=== PATIENT | male | born 1945 | race Caucasian/White ===

== ENCOUNTER 2016-06-29 13:19 | Outpatient (RCR) | payer MEDICARE, OTHER ==
[~2016-06-29 13:19] MED LIST: ASPI-892 PO; AZIT-21 PO; DESL5TAB5 PO; FENO135C PO; HYDR-229 PO; HYDR1CAP2 PO; LISI20TA2 PO; NAPR-243 PO; NF-URO10 PO; NITR-33 PO; OMEP10CA2 PO; ROSU10TA12 PO
== END 2016-07-28 10:09 | disposition home or self-care (01) ==
PROVIDERS: ATTEND Internal Medicine Rheumatology
DX: M75.101 Unspecified rotator cuff tear or rupture of right shoulder, not specified as traumatic (principal); M75.102 Unspecified rotator cuff tear or rupture of left shoulder, not specified as traumatic

== ENCOUNTER 2018-03-13 10:09 | Day surgery (SDC) | payer MEDICARE ==
[~2018-03-13] VITALS: Ht 177.8 cm; Wt 82.2 kg
[~2018-03-13 10:09] MED LIST changes: +ACID1TAB PO; +AMLO5TAB9 PO; +AMOX1TAB12 PO; +ASPI-983 PO; +C250T PO; +CETI10TA20 PO; +DESL5TAB PO; +FENO135C4 PO; +FLUT9.9S NS; +FOLI0.4T2 PO; +GELA650C4 PO; +HYDR-3812 PO; +HYDR200T46 PO; +LISI-552 PO; +METH2.5T PO; +NAPR-915 PO; +NFBIOT1000 PO; +OMEP20TA7 PO; +POTA15TA9 PO; +ROSU10TA27 PO; +ROSU5TAB12 PO; +SODI14.12 NS; +VITA-189 PO; +VITA400T9 PO
[2018-03-13 10:15] VITALS: BP 144/91
[2018-03-13] MEDS ORDERED: MIDAZOLAM 2 MG/2 ML (VERSED) VIAL IVP ONE (10:30)
[2018-03-13] MEDS ORDERED: LIDOCAINE JELLY 2% 6 ML SYRINGE MM PRN (10:30)
[2018-03-13] MEDS ORDERED: fentaNYL INJECTION 100 MCG/2 ML AMP IVP ONE (10:30)
--- NOTE | 2018-03-13 10:31 | Conscious Sedation/ASA ---
Conscious Sedation Pre-Proced Time 10:30 ASA Score 2 For ASA 3 and 4: Consider anesthesia and medical clearance. Also, for patients with a history of failed moderate sedation consider anesthesia. Airway Lungs Heart ASA score ASA 1: a normal healthy patient ASA 2: a patient with a mild systemic disease (mid diabetes, controlled hypertension, obesity ASA 3: a patient with a severe systemic disease that limits activity (angina , COPD, prior Myocardial infarction) ASA 4: a patient with an incapacitating disease that is a constant threat to life (CHF, renal failure) ASA 5: a moribund patient not expected to survive 24 hrs. (ruptured aneurysm) ASA 6: a declared brain patient whose organs are being harvested. For emergent operations, add the letter E after the classification Mallampati Classification Grade 2 Sedation Plan Analgesia, Amnesia, Plan communicated to team members, Discussed options with patient/fam, Discussed risks with patient/fam The patient is an appropriate candidate to undergo the planned procedure, sedation, and anesthesia. The patient immediately re-assessed prior to indication. XIOMARA FOX MD Mar 13, 2018 10:30
--- NOTE | 2018-03-13 10:33 | Progress Note-Pre Operative ---
Pre-Operative Progress Note H&P Reviewed The H&P was reviewed, patient examined and no changes noted. Date Seen by Provider: Mar 13, 2018 Time Seen by Provider: 10:30 Date H&P Reviewed: Mar 13, 2018 Time H&P Reviewed: 10:30 Pre-Operative Diagnosis: occult positive stool, family hx colon cancer XIOMARA FOX MD Mar 13, 2018 10:33
[2018-03-13] MEDS ORDERED: NS IV 500 ML 500 ML ONE (10:40)
[2018-03-13] MEDS ORDERED: ACETAMINOPHEN 325 MG TABLET PO PRN (10:45)
[2018-03-13] MEDS ORDERED: HYDROcodone/APAP 5 MG/325 MG (LORTAB) TAB PO PRN (10:45)
[2018-03-13] MEDS ORDERED: morphine INJ 10 MG/ML 1ML (SYR OR VIAL) IV PRN (10:45)
[2018-03-13] MEDS ORDERED: ONDANSETRON 4 MG/2 ML (SDV) Z0FRAN IV PRN (10:45)
--- NOTE | 2018-03-13 11:13 | Discharge Inst-Surgical ---
D/C Lap Instructions-RUDDY Follow Up 5 years Activity as tolerated Regular Diet Symptoms to Report: Fever over 101 degree F, Nausea/Vomiting Infection Signs and Symptoms to report: Increased redness, Foul odor of wound, Increased drainage Bathing instructions: May shower Operative Area Clean/Dry; Keep incision clean/dry If any problems/questions: Contact your physician or go to Emergency Room XIOMARA FOX MD Mar 13, 2018 11:13
[2018-03-13] MEDS ORDERED: MIDAZOLAM 2 MG/2 ML (VERSED) VIAL ONE ×6 (12:13→13:12)
[2018-03-13] MEDS ORDERED: LIDOCAINE JELLY 2% 6 ML SYRINGE ONE (12:13)
[2018-03-13] MEDS ORDERED: fentaNYL INJECTION 100 MCG/2 ML AMP ONE ×2 (12:13→13:17)
[2018-03-13] MEDS ORDERED: NS IV 500 ML 500 ML IV SCH (13:15)
[2018-03-13] MEDS ORDERED: proPOfol 200 MG/20 ML (DIPRIVAN) VIAL IV ONE (13:28)
--- NOTE | 2018-03-13 14:12 | Progress Note-Post Operative ---
Post-Operative Progess Note Surgeon (s)/Manual Tester (s) Surgeon XIOMARA FOX MD Manual Tester: none Pre-Operative Diagnosis occult positive stool, family hx colon cancer Post-Operative Diagnosis mild chronic stage 2 ext and int hemorrhoids, mod-severe sigmoid diverticulosis. Procedure & Operative Findings Date of Procedure 03/13/18 Procedure Performed/Findings Colonoscopy Anesthesia Type MAC Estimated Blood Loss Estimated blood loss (mL): minimal Specimens/Packing Specimens Removed none XIOMARA FOX MD Mar 13, 2018 14:11
[2018-03-13 14:15] VITALS: BP 113/75
[2018-03-13 14:45] VITALS: BP 126/80
[2018-03-13 15:00] VITALS: BP 126/80
--- NOTE | 2018-03-13 15:05 | OPERATIVE REPORT ---
DATE OF SERVICE: 03/13/2018 ATTENDING PHYSICIAN: Dr. Moore. PREOPERATIVE DIAGNOSES: Occult positive stool based on Cologuard test, family history of colon cancer. POSTOPERATIVE DIAGNOSES: Mild chronic stage II external and internal hemorrhoids, [id number] sigmoid diverticulosis, no polyps or any neoplasms identified. PROCEDURE: Colonoscopy. SURGEON: Xiomara Fox MD ANESTHESIA: Monitored anesthesia care. ESTIMATED BLOOD LOSS: Minimal. FINDINGS: Chronic stage II external and internal hemorrhoids, not actively edematous nor inflamed and no bleeding. Normal sphincter tone was felt and there was a surgically absent prostate. There was a moderate to severe sigmoid diverticulosis with a tortuous sigmoid colon as well. There was no active bleeding as well as no mucosal inflammatory change to indicate any active diverticulitis. The remainder of the colon was normal. There were no polyps or any neoplasms identified. DISPOSITION: The patient tolerated the procedure well. INDICATIONS: The patient is a 72-year-old male in need of a followup colonoscopy. He reports his last colonoscopy was approximately 2009. He states on that colonoscopy was found to have a moderate sigmoid diverticulosis. He did take a Cologuard test, which was positive. He does not report any major issues with diarrhea nor constipation as well as no red blood per rectum nor any dark tarry stools. He does have a family history of colon cancer with his father having the disease. DESCRIPTION OF PROCEDURE: The patient was brought to the endoscopy suite, laid in the left lateral decubitus position. After adequate IV pain and sedative medications and monitored anesthesia care, digital rectal examination was performed. Mild chronic stage II external and internal hemorrhoids were identified, which were not actively edematous nor inflamed and no bleeding. Normal sphincter tone was felt and there were no palpable masses. Prostate gland was a surgically absent. The endoscope was then intubated to the anus and rectum gently insufflated. The endoscope was then advanced to the valves of George of the rectum with no polyps or any neoplasms identified. We then proceeded to the sigmoid colon where there was a tortuous sigmoid colon identified. There was also moderate to severe sigmoid diverticulosis. There were no mucosal inflammatory changes to indicate any active diverticulitis as well as no active bleeding. We were able to advance scope through the sigmoid colon into the descending colon where there were no polyps or any neoplasms identified. The endoscope was then advanced to the remainder of the transverse, ascending colon to the cecum and these segments were normal. There were no polyps or any neoplasms identified. The endoscope was then slowly withdrawn while taking a second look and suctioning of residual air with no additional findings. The patient tolerated the procedure well. We will recommend a high fiber diet with at least 30 grams of fiber per day as well as significant amounts of water on a daily basis to promote soft stools on a daily basis. Because of his first degree family history of colon cancer, we will recommend a followup colonoscopy in 5 years. Job ID: [id number] DocumentID: [id number] Dictated Date: 03/13/2018 14:16:37 [facility] Date: 03/13/2018 15:05:06 Dictated By: XIOMARA FOX MD
--- OUTSIDE RECORDS SUMMARY | 2018-03-13 15:10 | XMS REPORT | Clinical Summary ---
Author Author [facility] Organization [facility] Address Unknown Phone Unavailable Care Team Providers Care Foster Winder Name Role Phone PCP Unavailable Allergies Not on File Current Medications Not on file Active Problems Not on file Social History Tobacco Use Types Packs/Day Years Used Date Never Assessed Sex Assigned at Date Recorded Not on file Last Filed Vital Signs Not on file Plan of Treatment Not on file Results Not on filefrom Last 3 Months
--- OUTSIDE RECORDS SUMMARY | 2018-03-13 15:10 | XMS REPORT | Continuity of Care Document ---
Author Author [facility] Address Unknown Phone Unavailable Allergies Active Description Code Type Severity Reaction Onset Reported/Identified Relationship to Patient Clinical Status Yes No Known Drug Allergies [id number] Drug Allergy Unknown N/A 03/11/2010 Yes ciprofloxacin [id number] Drug Allergy Moderate N/A 05/24/2017 Medications There is no data. Problems Date Dx Coded Attending Type Code Diagnosis Diagnosed By 07/12/2010 Ot 592.0 CALCULUS OF KIDNEY 07/07/2013 JAYLEN ACE DO V05.9 NEED FOR PROPHYLACTIC VACCINATION AND INOCULATION AGAINST UNSPECIFIED SINGLE DISEASE 07/07/2013 JAYLEN ACE DO V06.1 TDAP DX 10/26/2015 Ot 592.0 CALCULUS OF KIDNEY 10/26/2015 Ot V72.84 EXAM PRE- OPERATIVE NOS 10/26/2015 Ot 455.0 INT HEMORRHOID W/O COMPL 10/26/2015 Ot 562.10 DIVERTICULOSIS COLON (W/O MENT OF HEMORR 10/26/2015 Ot V16.0 FAMILY HX-GI MALIGNANCY 10/26/2015 Ot V76.51 SCREEN MAL NEOP-COLON 11/02/2015 NORRIS BALTAZAR, PETROS Calzada Ot J32.9 CHRONIC SINUSITIS, UNSPECIFIED 11/18/2015 NORRIS BALTAZAR, PETROS Calzada Ot J32.9 CHRONIC SINUSITIS, UNSPECIFIED 06/02/2016 FACUNDO BALTAZAR, REAL Martinez Ot M75.101 UNSP ROTATR-CUFF TEAR/RUPTR OF RIGHT JOANIE 06/02/2016 REAL LOREDO MD Ot M75.102 UNSP ROTATR-CUFF TEAR/RUPTR OF LEFT SHOU 07/14/2016 REAL LOREDO MD Ot M75.101 UNSP ROTATR-CUFF TEAR/RUPTR OF RIGHT JOANIE 07/14/2016 REAL LOREDO MD Ot M75.102 UNSP ROTATR-CUFF TEAR/RUPTR OF LEFT SHOU 07/28/2016 REAL LOREDO MD Ot M75.101 UNSP ROTATR-CUFF TEAR/RUPTR OF RIGHT JOANIE 07/28/2016 FACUNDO BALTAZAR, REAL Martinez Ot M75.102 UNSP ROTATR-CUFF TEAR/RUPTR OF LEFT SHOU 05/24/2017 NORRIS BALTAZAR, PETROS Calzada Ot J32.9 CHRONIC SINUSITIS, UNSPECIFIED 05/24/2017 TAI BELL MD Ot A41.9 SEPSIS, UNSPECIFIED ORGANISM 05/24/2017 TAI BELL MD Ot I10 ESSENTIAL (PRIMARY) HYPERTENSION 05/24/2017 TAI BELL MD Ot L03.114 CELLULITIS OF LEFT UPPER LIMB 05/24/2017 TAI BELL MD Ot W29.8XXA CNTCT WITH OTHER POWERED HAND TOOLS AND 05/24/2017 PETROS PISANO MD Ot J32.9 CHRONIC SINUSITIS, UNSPECIFIED 05/24/2017 TAI BELL MD Ot A41.9 SEPSIS, UNSPECIFIED ORGANISM 05/24/2017 TAI BELL MD Ot I10 ESSENTIAL (PRIMARY) HYPERTENSION 05/24/2017 TAI BELL MD Ot L03.114 CELLULITIS OF LEFT UPPER LIMB 05/24/2017 TAI BELL MD Ot W29.8XXA CNTCT WITH OTHER POWERED HAND TOOLS AND 05/24/2017 TAI BELL MD Ot A41.9 SEPSIS, UNSPECIFIED ORGANISM 05/24/2017 TAI BELL MD Ot I10 ESSENTIAL (PRIMARY) HYPERTENSION 05/24/2017 TAI BELL MD Ot L03.114 CELLULITIS OF LEFT UPPER LIMB 05/24/2017 TAI BELL MD Ot W29.8XXA CNTCT WITH OTHER POWERED HAND TOOLS AND 05/25/2017 TAI BELL MD Ot A41.9 SEPSIS, UNSPECIFIED ORGANISM 05/25/2017 TAI BELL MD Ot I10 ESSENTIAL (PRIMARY) HYPERTENSION 05/25/2017 TAI BELL MD Ot L03.114 CELLULITIS OF LEFT UPPER LIMB 05/25/2017 TAI BELL MD Ot W29.8XXA CNTCT WITH OTHER POWERED HAND TOOLS AND 05/25/2017 TAI BELL MD Ot Z90.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( 05/25/2017 TAI BELL MD Ot A41.9 SEPSIS, UNSPECIFIED ORGANISM 05/25/2017 TAI BELL MD Ot I10 ESSENTIAL (PRIMARY) HYPERTENSION 05/25/2017 TAI BELL MD Ot L03.114 CELLULITIS OF LEFT UPPER LIMB 05/25/2017 TAI BELL MD, Ot W29.8XXA CNTCT WITH OTHER POWERED HAND TOOLS AND 05/25/2017 TAI BELL MD Ot Z90.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( 05/25/2017 TAI BELL MD Ot A41.9 SEPSIS, UNSPECIFIED ORGANISM 05/25/2017 TAI BELL MD Ot I10 ESSENTIAL (PRIMARY) HYPERTENSION 05/25/2017 TAI BELL MD Ot L03.114 CELLULITIS OF LEFT UPPER LIMB 05/25/2017 TAI BELL MD Ot W29.8XXA CNTCT WITH OTHER POWERED HAND TOOLS AND 05/25/2017 TAI BELL MD Ot Z90.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( 05/25/2017 TAI BELL MD Ot A41.9 SEPSIS, UNSPECIFIED ORGANISM 05/25/2017 TAI BELL MD Ot I10 ESSENTIAL (PRIMARY) HYPERTENSION 05/25/2017 TAI BELL MD Ot L03.114 CELLULITIS OF LEFT UPPER LIMB 05/25/2017 TAI BELL MD Ot W29.8XXA CNTCT WITH OTHER POWERED HAND TOOLS AND 05/25/2017 TAI BELL MD Ot Z90.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( 05/28/2017 TAI BELL MD Ot A41.9 SEPSIS, UNSPECIFIED ORGANISM 05/28/2017 TAI BELL MD Ot E87.6 HYPOKALEMIA 05/28/2017 TAI BELL MD Ot I10 ESSENTIAL (PRIMARY) HYPERTENSION 05/28/2017 TAI BELL MD Ot L03.114 CELLULITIS OF LEFT UPPER LIMB 05/28/2017 TAI BELL MD Ot N17.9 ACUTE KIDNEY FAILURE, UNSPECIFIED 05/28/2017 TAI BELL MD Ot W29.8XXA CNTCT WITH OTHER POWERED HAND TOOLS AND 05/28/2017 RAY BALTAZAR, TAI Francis Ot Z90.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( 06/08/2017 NORRIS BALTAZAR, PETROS Calzada Ot J32.9 CHRONIC SINUSITIS, UNSPECIFIED Procedures Code Description Performed By Performed On [id number] EXCISION OF L HAND SUBCU/ FASCIA, OPEN AP 05/25/2017 [id number] EXCISION OF L HAND SUBCU/ FASCIA, OPEN AP 05/25/2017 Results Test Result Range Bacterial blood culture - 05/24/17 09:08 Bacterial blood culture NG NRG Complete blood count (CBC) with automated white blood cell (WBC) differential - 05/24/17 09:15 Blood leukocytes automated count (number/volume) 20.4 10*3/uL 4.3-11.0 Blood erythrocytes automated count (number/volume) 4.18 10*6/uL 4.35-5.85 Venous blood hemoglobin measurement (mass/volume) 13.6 g/dL 13.3-17.7 Blood hematocrit (volume fraction) 40 % 40-54 Automated erythrocyte mean corpuscular volume 95 [foz_us] 80-99 Automated erythrocyte mean corpuscular hemoglobin (mass per erythrocyte) 33 pg 25-34 Automated erythrocyte mean corpuscular hemoglobin concentration measurement ( mass/volume) 34 g/dL 32-36 Automated erythrocyte distribution width ratio 12.6 % 10.0-14.5 Automated blood platelet count (count/volume) 169 10*3/uL 130-400 Automated blood platelet mean volume measurement 10.6 [foz_us] 7.4-10.4 Automated blood neutrophils/100 leukocytes 88 % 42-75 Automated blood lymphocytes/100 leukocytes 5 % 12-44 Blood monocytes/100 leukocytes 7 % 0-12 Automated blood eosinophils/100 leukocytes 0 % 0-10 Automated blood basophils/100 leukocytes 0 % 0-10 Blood neutrophils automated count (number/volume) 17.9 10*3 1.8-7.8 Blood lymphocytes automated count (number/volume) 1.0 10*3 1.0-4.0 Blood monocytes automated count (number/volume) 1.5 10*3 0.0-1.0 Automated eosinophil count 0.1 10*3/uL 0.0-0.3 Automated blood basophil count (count/volume) 0.0 10*3/uL 0.0-0.1 Blood manual differential performed detection - 05/24/17 09:15 Blood monocytes/100 leukocytes 2 % NRG Manual blood segmented neutrophils/100 leukocytes 89 % NRG Blood band neutrophils/100 leukocytes 3 % NRG Manual blood lymphocytes/100 leukocytes 5 % NRG Manual eosinophils/100 leukocytes in nose 1 % NRG Blood erythrocyte morphology finding identification NORMAL NR Blood lactic acid measurement (moles/volume) - 05/24/17 09:23 Blood lactic acid measurement (moles/volume) 1.32 mmol/L 0.50-2.00 PT panel in platelet poor plasma by coagulation assay - 05/24/17 09:23 Prothrombin time (PT) in platelet poor plasma by coagulation assay 16.3 s 12.2-14.7 INR in platelet poor plasma or blood by coagulation assay 1.3 0.8-1.4 Activated partial thromboplastin time (aPTT) in platelet poor plasma bycoagulation assay - 05/24/17 09:23 Activated partial thromboplastin time (aPTT) in platelet poor plasma bycoagulation assay 37 s 24-35 Comprehensive metabolic panel - 05/24/17 09:23 Serum or plasma sodium measurement (moles/volume) 136 mmol/L 135-145 Serum or plasma potassium measurement (moles/volume) 3.6 mmol/L 3.6-5.0 Serum or plasma chloride measurement (moles/volume) 105 mmol/L 98-107 Carbon dioxide 21 mmol/L 21-32 Serum or plasma anion gap determination (moles/volume) 10 mmol/L 5-14 Serum or plasma urea nitrogen measurement (mass/volume) 25 mg/dL 7-18 Serum or plasma creatinine measurement (mass/volume) 1.63 mg/dL 0.60-1.30 Serum or plasma urea nitrogen/creatinine mass ratio 15 NRG Serum or plasma creatinine measurement with calculation of estimated glomerular filtration rate 42 NRG Serum or plasma glucose measurement (mass/volume) 132 mg/dL 70-105 Serum or plasma calcium measurement (mass/volume) 9.5 mg/dL 8.5-10.1 Serum or plasma total bilirubin measurement (mass/volume) 0.8 mg/dL 0.1-1.0 Serum or plasma alkaline phosphatase measurement (enzymatic activity/volume) 58 U/L 40-136 Serum or plasma aspartate aminotransferase measurement (enzymatic activity/ volume) 16 U/L 5-34 Serum or plasma alanine aminotransferase measurement (enzymatic activity/volume ) 19 U/L 0-55 Serum or plasma protein measurement (mass/volume) 6.7 g/dL 6.4-8.2 Serum or plasma albumin measurement (mass/volume) 4.0 g/dL 3.2-4.5 Bacterial blood culture - 05/24/17 09:23 Bacterial blood culture NG NRG Complete urinalysis with reflex to culture - 05/24/17 09:50 Urine color determination RADHA NRG Urine clarity determination CLEAR NRG Urine pH measurement by test strip 5 5-9 Specific gravity of urine by test strip 1.025 1.016- 1.022 Urine protein assay by test strip, semi-quantitative 1+ NEGATIVE Urine glucose detection by automated test strip NEGATIVE NEGATIVE Erythrocytes detection in urine sediment by light microscopy NEGATIVE NEGATIVE Urine ketones detection by automated test strip 1+ NEGATIVE Urine nitrite detection by test strip NEGATIVE NEGATIVE Urine total bilirubin detection by test strip 1+ NEGATIVE Urine urobilinogen measurement by automated test strip (mass/volume) 1 mg/dL NORMAL Urine leukocyte esterase detection by dipstick 1+ NEGATIVE Automated urine sediment erythrocyte count by microscopy (number/high power field) [HPF] NRG Automated urine sediment leukocyte count by microscopy (number/high power field ) [HPF] NRG Bacteria detection in urine sediment by light microscopy FEW NRG Crystals detection in urine sediment by light microscopy NONE NRG Casts detection in urine sediment by light microscopy PRESENT NRG Mucus detection in urine sediment by light microscopy SMALL NRG Complete urinalysis with reflex to culture NO NRG Hyaline casts detection in urine sediment by light microscopy 10-25 NRG Complete blood count (CBC) with automated white blood cell (WBC) differential - 05/25/17 05:34 Blood leukocytes automated count (number/volume) 10.9 10*3/uL 4.3-11.0 Blood erythrocytes automated count (number/volume) 3.66 10*6/uL 4.35-5.85 Venous blood hemoglobin measurement (mass/volume) 11.8 g/dL 13.3-17.7 Blood hematocrit (volume fraction) 34 % 40-54 Automated erythrocyte mean corpuscular volume 93 [foz_us] 80-99 Automated erythrocyte mean corpuscular hemoglobin (mass per erythrocyte) 32 pg 25-34 Automated erythrocyte mean corpuscular hemoglobin concentration measurement ( mass/volume) 35 g/dL 32-36 Automated erythrocyte distribution width ratio 12.5 % 10.0-14.5 Automated blood platelet count (count/volume) 152 10*3/uL 130-400 Automated blood platelet mean volume measurement 11.1 [foz_us] 7.4-10.4 Automated blood neutrophils/100 leukocytes 80 % 42-75 Automated blood lymphocytes/100 leukocytes 10 % 12-44 Blood monocytes/100 leukocytes 8 % 0-12 Automated blood eosinophils/100 leukocytes 2 % 0-10 Automated blood basophils/100 leukocytes 0 % 0-10 Blood neutrophils automated count (number/volume) 8.7 10*3 1.8-7.8 Blood lymphocytes automated count (number/volume) 1.1 10*3 1.0-4.0 Blood monocytes automated count (number/volume) 0.8 10*3 0.0-1.0 Automated eosinophil count 0.2 10*3/uL 0.0-0.3 Automated blood basophil count (count/volume) 0.0 10*3/uL 0.0-0.1 Whole blood basic metabolic panel - 05/25/17 05:34 Serum or plasma sodium measurement (moles/volume) 138 mmol/L 135-145 Serum or plasma potassium measurement (moles/volume) 3.5 mmol/L 3.6-5.0 Serum or plasma chloride measurement (moles/volume) 110 mmol/L 98-107 Carbon dioxide 22 mmol/L 21-32 Serum or plasma anion gap determination (moles/volume) 6 mmol/L 5-14 Serum or plasma urea nitrogen measurement (mass/volume) 19 mg/dL 7-18 Serum or plasma creatinine measurement (mass/volume) 1.04 mg/dL 0.60-1.30 Serum or plasma urea nitrogen/creatinine mass ratio 18 NRG Serum or plasma creatinine measurement with calculation of estimated glomerular filtration rate > NRG Serum or plasma glucose measurement (mass/volume) 120 mg/dL 70-105 Serum or plasma calcium measurement (mass/volume) 8.3 mg/dL 8.5-10.1 Methicillin resistant Staphylococcus aureus (MRSA) screening culture - 16:00 Methicillin resistant Staphylococcus aureus (MRSA) screening culture NEG NRG Bacteria identification in isolate by anaerobe culture - 05/25/17 16:32 Bacteria identification in isolate by anaerobe culture NOANA NRG Gram stain microscopy - 05/25/17 16:32 GRAM STAIN RESULT FEW GRAM POSITIVE COCCI NR Bacteria identification in wound by culture - 05/25/17 16:32 Bacteria identification in wound by culture [id number] NR QUANTITY OF GROWTH Moderate Growth NRG Complete blood count (CBC) with automated white blood cell (WBC) differential - 05/26/17 04:55 Blood leukocytes automated count (number/volume) 7.4 10*3/uL 4.3-11.0 Blood erythrocytes automated count (number/volume) 3.55 10*6/uL 4.35-5.85 Venous blood hemoglobin measurement (mass/volume) 11.4 g/dL 13.3-17.7 Blood hematocrit (volume fraction) 33 % 40-54 Automated erythrocyte mean corpuscular volume 92 [foz_us] 80-99 Automated erythrocyte mean corpuscular hemoglobin (mass per erythrocyte) 32 pg 25-34 Automated erythrocyte mean corpuscular hemoglobin concentration measurement ( mass/volume) 35 g/dL 32-36 Automated erythrocyte distribution width ratio 12.1 % 10.0-14.5 Automated blood platelet count (count/volume) 178 10*3/uL 130-400 Automated blood platelet mean volume measurement 10.4 [foz_us] 7.4-10.4 Automated blood neutrophils/100 leukocytes 70 % 42-75 Automated blood lymphocytes/100 leukocytes 17 % 12-44 Blood monocytes/100 leukocytes 10 % 0-12 Automated blood eosinophils/100 leukocytes 3 % 0-10 Automated blood basophils/100 leukocytes 0 % 0-10 Blood neutrophils automated count (number/volume) 5.2 10*3 1.8-7.8 Blood lymphocytes automated count (number/volume) 1.3 10*3 1.0-4.0 Blood monocytes automated count (number/volume) 0.7 10*3 0.0-1.0 Automated eosinophil count 0.2 10*3/uL 0.0-0.3 Automated blood basophil count (count/volume) 0.0 10*3/uL 0.0-0.1 Whole blood basic metabolic panel - 05/26/17 04:55 Serum or plasma sodium measurement (moles/volume) 139 mmol/L 135-145 Serum or plasma potassium measurement (moles/volume) 3.4 mmol/L 3.6-5.0 Serum or plasma chloride measurement (moles/volume) 111 mmol/L 98-107 Carbon dioxide 19 mmol/L 21-32 Serum or plasma anion gap determination (moles/volume) 9 mmol/L 5-14 Serum or plasma urea nitrogen measurement (mass/volume) 13 mg/dL 7-18 Serum or plasma creatinine measurement (mass/volume) 0.89 mg/dL 0.60-1.30 Serum or plasma urea nitrogen/creatinine mass ratio 15 NRG Serum or plasma creatinine measurement with calculation of estimated glomerular filtration rate > NRG Serum or plasma glucose measurement (mass/volume) 107 mg/dL 70-105 Serum or plasma calcium measurement (mass/volume) 8.6 mg/dL 8.5-10.1 Vancomycin trough - 05/26/17 08:55 Vancomycin trough 6.2 ug/mL 10.0-20.0 Complete blood count (CBC) with automated white blood cell (WBC) differential - 05/27/17 05:36 Blood leukocytes automated count (number/volume) 9.9 10*3/uL 4.3-11.0 Blood erythrocytes automated count (number/volume) 3.66 10*6/uL 4.35-5.85 Venous blood hemoglobin measurement (mass/volume) 11.5 g/dL 13.3-17.7 Blood hematocrit (volume fraction) 33 % 40-54 Automated erythrocyte mean corpuscular volume 90 [foz_us] 80-99 Automated erythrocyte mean corpuscular hemoglobin (mass per erythrocyte) 31 pg 25-34 Automated erythrocyte mean corpuscular hemoglobin concentration measurement ( mass/volume) 35 g/dL 32-36 Automated erythrocyte distribution width ratio 11.9 % 10.0-14.5 Automated blood platelet count (count/volume) 225 10*3/uL 130-400 Automated blood platelet mean volume measurement 10.1 [foz_us] 7.4-10.4 Automated blood neutrophils/100 leukocytes 74 % 42-75 Automated blood lymphocytes/100 leukocytes 13 % 12-44 Blood monocytes/100 leukocytes 10 % 0-12 Automated blood eosinophils/100 leukocytes 2 % 0-10 Automated blood basophils/100 leukocytes 0 % 0-10 Blood neutrophils automated count (number/volume) 7.4 10*3 1.8-7.8 Blood lymphocytes automated count (number/volume) 1.3 10*3 1.0-4.0 Blood monocytes automated count (number/volume) 1.0 10*3 0.0-1.0 Automated eosinophil count 0.2 10*3/uL 0.0-0.3 Automated blood basophil count (count/volume) 0.0 10*3/uL 0.0-0.1 Whole blood basic metabolic panel - 05/27/17 05:36 Serum or plasma sodium measurement (moles/volume) 138 mmol/L 135-145 Serum or plasma potassium measurement (moles/volume) 3.6 mmol/L 3.6-5.0 Serum or plasma chloride measurement (moles/volume) 109 mmol/L 98-107 Carbon dioxide 23 mmol/L 21-32 Serum or plasma anion gap determination (moles/volume) 6 mmol/L 5-14 Serum or plasma urea nitrogen measurement (mass/volume) 12 mg/dL 7-18 Serum or plasma creatinine measurement (mass/volume) 0.84 mg/dL 0.60-1.30 Serum or plasma urea nitrogen/creatinine mass ratio 14 NRG Serum or plasma creatinine measurement with calculation of estimated glomerular filtration rate > NRG Serum or plasma glucose measurement (mass/volume) 115 mg/dL 70-105 Serum or plasma calcium measurement (mass/volume) 8.7 mg/dL 8.5-10.1 Vancomycin trough - 05/27/17 09:18 Vancomycin trough 10.0 ug/mL 10.0-20.0 Complete blood count (CBC) with automated white blood cell (WBC) differential - 05/28/17 05:35 Blood leukocytes automated count (number/volume) 10.9 10*3/uL 4.3-11.0 Blood erythrocytes automated count (number/volume) 3.75 10*6/uL 4.35-5.85 Venous blood hemoglobin measurement (mass/volume) 12.1 g/dL 13.3-17.7 Blood hematocrit (volume fraction) 34 % 40-54 Automated erythrocyte mean corpuscular volume 91 [foz_us] 80-99 Automated erythrocyte mean corpuscular hemoglobin (mass per erythrocyte) 32 pg 25-34 Automated erythrocyte mean corpuscular hemoglobin concentration measurement ( mass/volume) 36 g/dL 32-36 Automated erythrocyte distribution width ratio 11.9 % 10.0-14.5 Automated blood platelet count (count/volume) 265 10*3/uL 130-400 Automated blood platelet mean volume measurement 9.9 [foz_us] 7.4-10.4 Automated blood neutrophils/100 leukocytes 71 % 42-75 Automated blood lymphocytes/100 leukocytes 17 % 12-44 Blood monocytes/100 leukocytes 8 % 0-12 Automated blood eosinophils/100 leukocytes 3 % 0-10 Automated blood basophils/100 leukocytes 1 % 0-10 Blood neutrophils automated count (number/volume) 7.8 10*3 1.8-7.8 Blood lymphocytes automated count (number/volume) 1.9 10*3 1.0-4.0 Blood monocytes automated count (number/volume) 0.9 10*3 0.0-1.0 Automated eosinophil count 0.3 10*3/uL 0.0-0.3 Automated blood basophil count (count/volume) 0.1 10*3/uL 0.0-0.1 Whole blood basic metabolic panel - 05/28/17 05:35 Serum or plasma sodium measurement (moles/volume) 140 mmol/L 135-145 Serum or plasma potassium measurement (moles/volume) 3.8 mmol/L 3.6-5.0 Serum or plasma chloride measurement (moles/volume) 108 mmol/L 98-107 Carbon dioxide 22 mmol/L 21-32 Serum or plasma anion gap determination (moles/volume) 10 mmol/L 5-14 Serum or plasma urea nitrogen measurement (mass/volume) 13 mg/dL 7-18 Serum or plasma creatinine measurement (mass/volume) 1.11 mg/dL 0.60-1.30 Serum or plasma urea nitrogen/creatinine mass ratio 12 NRG Serum or plasma creatinine measurement with calculation of estimated glomerular filtration rate > NRG Serum or plasma glucose measurement (mass/volume) 115 mg/dL 70-105 Serum or plasma calcium measurement (mass/volume) 9.1 mg/dL 8.5-10.1 Encounters ACCT No. Visit Date/Time Discharge Status Pt. Type Provider Facility Loc./Unit Complaint [id number] 07/07/2013 13:44:00 07/07/2013 23:59:59 CLS Outpatient JAYLEN ACE DO [id number] 05/24/2017 08:37:00 05/28/2017 11:06:00 DIS Inpatient TAI BELL MD [facility] 4TH LEFT HAND CELLULITIS [id number] 06/29/2016 13:19:00 07/28/2016 10:09:00 DIS Outpatient REAL LOREDO MD [facility] REHAB L SHOULDER PAIN [id number] 10/26/2015 12:09:00 10/26/2015 23:59:59 CLS Outpatient NORRIS BALTAZAR, PETROS Calzada [facility] RAD CHRONIC SINUSITIS [id number] 03/13/2018 11:00:00 PEN Preadmit RUDDY BALTAZAR, XIOMARA [facility] ENDO +BLOOD OCCULT IN STOOL/FAMILY HX COLON CA [id number] 06/09/2011 07:54:00 Document Registration [id number] 06/08/2011 07:59:00 Document Registration [id number] 07/13/2010 00:00:00 Document Registration [id number] 05/06/2010 08:31:00 Document Registration
== END 2018-03-13 15:00 | disposition home or self-care (01) ==
LOC: ENDO 10:09
PROVIDERS: ATTEND Surgery
DX: K57.30 Diverticulosis of large intestine without perforation or abscess without bleeding (principal); K64.1 Second degree hemorrhoids; R19.5 Other fecal abnormalities; I10 Essential (primary) hypertension; E78.00 Pure hypercholesterolemia, unspecified; K21.9 Gastro-esophageal reflux disease without esophagitis; Z85.46 Personal history of malignant neoplasm of prostate; Z87.442 Personal history of urinary calculi; Z79.899 Other long term (current) drug therapy; Z79.82 Long term (current) use of aspirin; Z80.0 Family history of malignant neoplasm of digestive organs

== ENCOUNTER 2021-10-17 11:34 | Outpatient (RCR) | payer MEDICARE ==
[~2021-10-17 11:34] MED LIST changes: +ACHD5005 PO; +AMLO-250 PO; -AMLO5TAB9 PO; +ASCO250T16 PO; +ASPI-1238 PO; -ASPI-983 PO; -C250T PO; -CETI10TA20 PO; +CETI10TA49 PO; -DESL5TAB PO; +DESL5TAB41 PO; -FOLI0.4T2 PO; +FOLI0.4T6 PO; -HYDR-3812 PO; -LISI-552 PO; +LISI20TA26 PO; +OMEP20TA56 PO; -OMEP20TA7 PO; -ROSU10TA27 PO; +ROSU10TA28 PO; -ROSU5TAB12 PO; +ROSU5TAB13 PO; +SODI0.5GEL NS; -SODI14.12 NS
== END 2021-10-19 | disposition home or self-care (01) ==
LOC: LAB 11:34
PROVIDERS: ATTEND Internal Medicine
DX: R63.4 Abnormal weight loss (principal); R19.7 Diarrhea, unspecified
CPT/HCPCS: 36415; 82710; 87015; 87045; 87046; 87324; 87328; 87329; 87449; 87899